=== PATIENT | male | born 1990 | race Caucasian/White ===

== ENCOUNTER 2021-06-04 12:30 | Outpatient (REF) | payer OTHER, SELFPAY ==
[2021-06-04 14:24] LABS: Alanine Aminotransferase 71 U/L (0-40); Alkaline Phosphatase 57 U/L (39-117); Anion Gap 13 (12-20); Aspartate Amino Transferase 41 U/L (5-37); Bilirubin Total 1.3 mg/dL (0.0-1.0); Blood Urea Nitrogen 10 mg/dL (9-16); Carbon Dioxide 28 mmol/L (22-29); Chloride 102 mmol/L (96-108); Cholesterol 184 mg/dL; Estimated Glomerular Filt Rate > 60; Glucose Fasting 86 mg/dL (60-99); HDL Cholesterol 45 mg/dL; LDL Cholesterol Calculated 103 mg/dl; Potassium 4.1 mmol/L (3.3-5.1); Sodium 139 mmol/L (135-145); Total Protein 7.7 g/dL (6.5-8.0); Triglycerides 181 mg/dL
[2021-06-04 14:35] LABS: TSH reflex Free T4 0.32 uIU/mL (0.32-4.0)
[2021-06-04 15:41] LABS: CT PCR NOT DETECTED (Not Detect.); NG PCR NOT DETECTED (Not Detect.)
[2021-06-05 08:13] LABS: HIV AB/AG Nonreactive (Nonreactive); HIV Num 1 0.09 S/CO (0.00-0.99); ~HepC Num1 0.14 S/CO (0.00-0.79); ~Hepatitis B Surface Antibody REACTIVE (Nonreactive); ~Hepatitis C Antibody Nonreactive (Nonreactive)
[2021-06-05 08:30] LABS: Syphilis Screen Nonreactive (Nonreactive)
[2021-06-05 08:46] LABS: HBc Num1 0.07 S/CO (0.00-0.79); HBsAGNum1 0.22 S/CO (0.00-0.99); Hepatitis B Core Antibody Nonreactive (Nonreactive); Hepatitis B Surface Antigen Negative (Negative)
== END 2021-06-04 12:31 | disposition home or self-care (01) ==
LOC: HO.HMGCLDS 12:30
PROVIDERS: PCP Family Medicine; Visit Provider Family Medicine
DX: Z00.00 Encounter for general adult medical examination without abnormal findings (principal); Z11.3 Encounter for screening for infections with a predominantly sexual mode of transmission; Z11.4 Encounter for screening for human immunodeficiency virus [HIV]
CPT/HCPCS: 80053; 80061; 84443; 86704; 86706; 86780; 86803; 87340; 87389; 87491; 87591

== ENCOUNTER 2021-06-24 14:00 | Outpatient (RCR) | payer OTHER, SELFPAY ==
--- NOTE | 2021-06-02 15:57 | MHC.PT.EP ---
[facility] [place] Office [place] Office [place] Office [address] Bridgett Ames [address] [phone] F: [phone] F: [phone] F: [phone] F: [phone] Physical Therapy Plan of Care Date of Evaluation: Date of Surgery: Diagnosis: This is a 30 yo male presenting to skilled PT with a script for pain in R shoulder (LHD) Assessment: This is a 30 yo male presenting to skilled PT with a script for pain in R shoulder. Pain has been ongoing for 3-4 years. He has a previous history of shoulder impingements but reports that this feels different. Pain is located anterior and posterior shoulder joint line. Pain can be sharp with random movements otherwise achy at rest. Denies numbness and tingling. He is being followed by Dr. Chao and follows up with him on 06/16. Patient is in the . Daily tasks change at work but generally does pushing, pulling and physical training. He feels limited in bench press, curling, incline bench exercises and pull ups. He can lift up to 80 lbs at time at work and often does pushing/pulling as well reaching with job related tasks. Assessment reveals pain that ranges up to a 2-5/10. He demos decreased shoulder ROM, decreased scapular and GHJ strength, impaired resting posture with anterior GHJ and forward head, TTP throughout lats as well as gross functional decline with reaching, pulling, lifting and reaching. He is a good candidate for skilled PT 2x/wk for 5wks. Frequency and Duration: The patient will be seen 2x/wk for 6wks Short Term Goals: I in HEP Demo normal ROM B without pain in supine [employer]isher Goals: Demo good mobility/ROM without pain in standing Return to gym in full Demo push ups without pain Demo at least 4/5 scapular strength Treatment Plan: Modalities to reduce pain, spasms and effusion. Manual therapy to restore motion and function. Therapeutic exercise to improve strength and flexibility. Neuromuscular re-education for posture and balance. Therapeutic activities to return to functional activities of daily living. Electronically signed by: Marti Palm PT Please sign and return to therapist. Thank you for your referral.
--- NOTE | 2021-06-24 14:55 | MHC.PT.DC ---
[facility] [place] Office [place] Office [place] Office [address] [facility] [address] Shel[address] Ames [address] [phone] F: [phone] F: [phone] F: [phone] F: [phone] Physical Therapy Discharge Report Diagnosis: This is a 30 yo male presenting to skilled PT with a script for pain in R shoulder (LHD) Date of Surgery: Date of Evaluation: 06/02/21 Date of Discharge: 06/24/21 Treatments to Date: 4 Cancellations to Date: 0 No Shows to Date: 0 Discharge Status: Achieved Goals Improved Function Independent with HEP Discharge Summary: Pt R SH ROM WNL, strength for shoulder and scapular motions 5/5. Pt achieved all ST and LTG's. Pt I with HEP. Pt is going to return back to gym after Covid decreases. Patient is pain free, happy with progress and ready for DC at this time. Electronically signed by: Marti Palm PT Please sign and return to therapist. Thank you for your referral.
== END 2021-06-24 14:56 | disposition home or self-care (01) ==
LOC: HO.PTCHIC 14:00
PROVIDERS: PCP Family Medicine; Visit Provider Family Medicine
DX: M25.511 Pain in right shoulder (principal)
CPT/HCPCS: 97110; 97140; 97162

== ENCOUNTER 2021-11-02 12:42 | Outpatient (REF) | payer OTHER, SELFPAY ==
[2021-11-02 13:58] LABS: Alanine Aminotransferase 51 U/L (0-40); Albumin Level 4.9 g/dL (3.5-5.0); Alkaline Phosphatase 54 U/L (39-117); Anion Gap 14 (12-20); Aspartate Amino Transferase 26 U/L (5-37); Bilirubin Total 0.9 mg/dL (0.0-1.0); Blood Urea Nitrogen 9 mg/dL (9-16); Calcium 9.6 mg/dL (8.4-10.2); Carbon Dioxide 26 mmol/L (22-29); Chloride 103 mmol/L (96-108); Estimated Glomerular Filt Rate > 60; Glucose Fasting 97 mg/dL (60-99); Sodium 139 mmol/L (135-145); Total Protein 7.9 g/dL (6.5-8.0)
== END 2021-11-02 12:43 | disposition home or self-care (01) ==
LOC: HO.HMGCLDS 12:42
PROVIDERS: PCP Family Medicine; Visit Provider Family Medicine
DX: Z00.00 Encounter for general adult medical examination without abnormal findings (principal)
CPT/HCPCS: 36415; 80053

== ENCOUNTER 2022-04-22 10:00 | Outpatient (RCR) | payer OTHER, SELFPAY ==
--- NOTE | 2022-03-25 15:00 | MHC.PT.EP ---
[facility] [place] Office [place] Office [place] Office [address] Bridgett Ames [address] [phone] F: [phone] F: [phone] F: [phone] F: [phone] Physical Therapy Plan of Care Date of Evaluation: Date of Surgery: Diagnosis: LBP. 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 Pt is deemed an appropriate candidate to receive skilled PT in order to address his physical limitations to improve his functional ability. Frequency and Duration: The patient will be seen 2 x/ wk x 5 wks. Short Term Goals: Initiate HEP. improve baseline pain to < 4/10; initial: 6/10. Detention Goals: I with home exercise program. Pt will report < 1/4 disturbed night's sleep d/t back pain; initial: > 1/2 disturbed night's sleep. Pt will report at least: I get some pain while traveling but traveling does not increase my pain; initial: I have pain while traveling which causes me to seek alternate forms of travel. Treatment Plan: Modalities to reduce pain, spasms and effusion. Manual therapy to restore motion and function. Therapeutic exercise to improve strength and flexibility. Neuromuscular re-education for posture and balance. Therapeutic activities to return to functional activities of daily living. Electronically signed by: Palmer Carmona PT. Please sign and return to therapist. Thank you for your referral.
--- NOTE | 2022-06-01 10:37 | MHC.PT.DC ---
[facility] [place] Office [place] Office [place] Office [address] Bridgett Ames [address] [phone] F: [phone] F: [phone] F: [phone] F: [phone] Physical Therapy Discharge Report Diagnosis: LBP. Date of Surgery: Date of Evaluation: 03/25/22 Date of Discharge: 06/01/22 Treatments to Date: 7 Cancellations to Date: No Shows to Date: Discharge Status: Improved Function Independent with HEP Patient Elected to Stop Discharge Summary: Pt had reported some improvements with his program, is I with a lumbar spinal mobility / stability home program though did not f/u with end of plan for final assessment. Electronically signed by: Palmer Carmona PT. Please sign and return to therapist. Thank you for your referral.
== END 2022-06-01 10:38 | disposition home or self-care (01) ==
LOC: HO.PTCHIC 10:00
PROVIDERS: PCP Family Medicine; Visit Provider Family Medicine
DX: M54.50 Low back pain, unspecified (principal)
CPT/HCPCS: 97110; 97140; 97161

== ENCOUNTER 2022-10-19 10:59 | Outpatient (REF) | payer OTHER, SELFPAY ==
[2022-10-19 14:30] LABS: Appearance Urine Clear; Color Urine Yellow; Glucose Urine UA Negative (Negative); Leukocyte Esterase Urine Negative (Negative); Nitrite Urine Negative (Negative); PH 6.5 (5.0-9.0); Specific Gravity - Urine 1.015 (1.005-1.025); Urine Blood Negative (Negative); Urine Ketones Negative (Negative); Urine Protein Negative (Neg-Trace)
[2022-10-19 15:00] LABS: Alanine Aminotransferase 56 U/L (0-40); Albumin Level 4.8 g/dL (3.5-5.0); Alkaline Phosphatase 65 U/L (39-117); Anion Gap 17 (12-20); Aspartate Amino Transferase 38 U/L (5-37); Bilirubin Total 1.3 mg/dL (0.0-1.0); Blood Urea Nitrogen 13 mg/dL (9-16); Calcium 9.7 mg/dL (8.4-10.2); Carbon Dioxide 25 mmol/L (22-29); Chloride 100 mmol/L (96-108); Cholesterol 198 mg/dL; Estimated Glomerular Filt Rate > 60; Glucose Fasting 94 mg/dL (60-99); HDL Cholesterol 47 mg/dL; LDL Cholesterol Calculated 113 mg/dl; Potassium 3.9 mmol/L (3.3-5.1); Sodium 138 mmol/L (135-145); Total Protein 7.5 g/dL (6.5-8.0); Triglycerides 194 mg/dL
[2022-10-19 15:16] LABS: TSH reflex Free T4 1.22 uIU/mL (0.32-4.0)
[2022-10-19 15:27] LABS: Creatinine Urine 135.22 mg/dL; Microalbum/Creatinine Ratio Ur 8.8 ug/mg cr
== END 2022-10-19 11:00 | disposition home or self-care (01) ==
LOC: HO.HMGCLDS 10:59
PROVIDERS: PCP Family Medicine; Visit Provider Family Medicine
DX: Z00.00 Encounter for general adult medical examination without abnormal findings (principal); I10 Essential (primary) hypertension
CPT/HCPCS: 36415; 80053; 80061; 81003; 82043; 84443